=== PATIENT | male | born 1990 | race Caucasian/White ===

== ENCOUNTER 2022-08-24 17:05 | Emergency (ER) | payer OTHER ==
[2022-08-24 17:20] VITALS: BP 132/78; PULSE 76; RESP 18; TEMP 97.7; BMI 27.3
[2022-08-24] MEDS ORDERED: KETOROLAC TROMETHAMINE 30 MG/1 ML VIAL IM ONE (18:57)
[2022-08-24] MEDS ORDERED: ACETAMINOPHEN 500 MG TABLET (FP) PO ONE (18:57)
[2022-08-24] MEDS ORDERED: ACETAMINOPHEN 500 MG TABLET (FP) ONE (19:00)
[2022-08-24] MEDS ORDERED: KETOROLAC TROMETHAMINE 30 MG/1 ML VIAL ONE (19:00)
== END 2022-08-24 19:21 | disposition home or self-care (01) ==
LOC: JERFT 17:05 → JER 17:05 → JERFT 19:21
PROC: 3E023GC Introduction of Other Therapeutic Substance into Muscle, Percutaneous Approach (ICD-10-PCS; principal; 2022-08-24)
DX: S83.92XA Sprain of unspecified site of left knee, initial encounter (principal); V00.141A Fall from scooter (nonmotorized), initial encounter
CPT/HCPCS: 73562-TC-LT-FY; 99284-25